=== PATIENT | female | born 1990 | race Caucasian/White ===

== ENCOUNTER 2022-09-10 15:33 | Emergency (ER) | payer BC, SELFPAY ==
[2022-09-10 15:34] VITALS: BP 124/74; PULSE 102; RESP 18; TEMP 36.1; O2SAT 100; BMI 22.1
--- NOTE | 2022-09-10 15:52 | CT_ITS ---
STUDY: CT ABDOMEN AND PELVIS WITHOUT CONTRAST REASON FOR EXAM: Female, 31 years old. LLQ pain, left flank pain, left lower back pain and swelling per patient RADIATION DOSAGE (If Supplied By Facility): CTDIvol = ( 6.76 ) mGy, DLP = ( 356.24 ) mGycm TECHNIQUE: Transaxial images were obtained from the dome of the diaphragm to the symphysis pubis without oral contrast, and without intravenous contrast. Sagittal and coronal images were reconstructed. Individualized dose optimization techniques were used for this CT. COMPARISON: None. FINDINGS: The visualized lung bases are unremarkable. The visualized portions of the heart are within normal limits. Normal liver. There are surgical clips in the gallbladder fossa consistent with a prior cholecystectomy. Normal spleen. Normal pancreas. Normal bilateral adrenal glands. Normal right kidney. Normal left kidney. Normal visualized stomach. Normal small intestine. Normal colon. The appendix is visualized and appears normal. Normal abdominal aorta. Normal inferior vena cava. Normal retroperitoneum. Normal urinary bladder. Normal abdominal wall. Normal osseous structures. CT/Abdomen/Pelvis without Cont IMPRESSION: No hydronephrosis or urinary tract calcifications. Electronically Signed: Ion Hernandez (Brooks), at 17:16 EDT Reading Location ID and State: [facility] / MD , Service support ,
--- NOTE | 2022-09-10 15:56 | EDS_ITS ---
HPI History of Present Illness Chief Complaint: Abd Pain Narrative Narrative: + Patient is a 31-year-old female who is presenting to the ER today with multiple complaints going on for the past 2 weeks. Patient is having intermittent nausea, vomiting, diarrhea for the past 2 weeks. Patient is having more swelling to her left lower quadrant, left flank and left lower back over the past 2 to 3 days as well. Patient's been having pure water with stool for the past 3 days. Patient had normal soft stool 4 to 5 days ago. Patient just had her menses several days ago, states that she is not . Patient is a G0, P0. Patient has no urinary frequency, urgency or burning. Patient has no chest pain or shortness of breath. No fever or chills. 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 No heavy lifting, twisting or turning recently. No rash. Patient's been seeing her chiropractor with no relief. Patient does have a history of kidney stone many years ago, she states it does feel like a kidney stone. Patient states that she is having swelling to her left lower back and left flank, uncertain what that is coming from. She is never had this before. 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 No radiculopathy or paresthesias down into her lower extremities, no other acute complaints PFSH [facility] Medical History ADD (attention deficit disorder) Allergies Asthma Attention deficit hyperactivity disorder (ADHD) Back problem Cholecystectomy planned Gastrointestinal problem GERD (gastroesophageal reflux disease) Migraines Pancreatitis Seizure UTI (urinary tract infection) Vision problems Home Medications albuterol sulfate 90 mcg/actuation aerosol inhaler 2 puff inhalation Q6H PRN 07/19/22 [History Last Taken Unknown] gabapentin 300 mg capsule 300 mg PO QHS 07/19/22 [History Last Taken Unknown] multivitamin 1 tab PO DAILY 07/19/22 [History Last Taken Unknown] norethindrone 1 mg-ethinyl estradiol 10 mcg (24)-iron 10 mcg(2) tablet (Lo Loestrin Fe) tablet PO 07/19/22 [History Last Taken Unknown] sumatriptan succinate 50 mg tablet tablet PO 07/19/22 [History Last Taken Unknown] dextroamphetamine-amphetamine ER 50 mg capsule,3 bead,ext release 24hr (Mydayis) 50 mg PO DAILY 30 days #30 ea 08/16/22 [Rx Last Taken Unknown] amitriptyline 25 mg tablet 25 mg PO QHS #90 tabs 09/01/22 [Rx Last Taken Unknown] dextroamphetamine-amphetamine ER 50 mg capsule,3 bead,ext release 24hr (Mydayis) 50 mg PO DAILY 30 days #30 ea 09/01/22 [Rx Last Taken Unknown] dextroamphetamine-amphetamine ER 50 mg capsule,3 bead,ext release 24hr (Mydayis) 50 mg PO DAILY 30 days #30 ea 09/01/22 [Rx Last Taken Unknown] dextroamphetamine-amphetamine ER 50 mg capsule,3 bead,ext release 24hr (Mydayis) 50 mg PO DAILY 30 days #30 ea 09/01/22 [Rx Last Taken Unknown] ondansetron 4 mg disintegrating tablet 4 mg PO Q4H PRN Nausea #6 tabs 09/10/22 [Rx Last Taken Unknown] Allergy/AdvReac Type Severity Reaction Status Date / Time amoxicillin [From Augmentin] Allergy Severe Nausea/Vom/ Verified 09/10/22 15:48 Diarrhea clavulanic acid Allergy Severe Nausea/Vom/ Verified 09/10/22 15:48 [From Augmentin] Diarrhea Latex, Natural Rubber Allergy Severe Anaphylaxis Verified 09/10/22 15:48 Sulfa (Sulfonamide Allergy Intermediate Rash Verified 09/10/22 15:48 Antibiotics) Penicillins Allergy Mild Rash Verified 09/10/22 15:48 Tetracyclines Allergy Mild Rash Verified 09/10/22 15:48 egg yolk Allergy Severe Breathing Uncoded 09/10/22 15:48 difficulty Shrimp Allergy Intermediate Rash Uncoded 09/10/22 15:48 IV contrast Dye Allergy Mild Swelling Uncoded 09/10/22 15:48 Family History Father , 2015 Alcoholism Other Anxiety Asthma Cancer Depression Hypertension Severe allergy Surgical History H/O eye surgery History of bladder surgery History of mandibular surgery Social History Smoking Status: Former smoker alcohol intake: current substance use type: does not use frequency: 3-4 times per week ROS ROS ED ROS Narrative REVIEW OF SYSTEMS: Unless otherwise stated in this report the patient's positive and negative responses for review of systems for constitutional, eyes, ENT, cardiovascular, respiratory, gastrointestinal, neurological, , musculoskeletal, and integument systems and related systems to the presenting problem are either stated in the history of present illness or were not pertinent or were negative for the symptoms and/or complaints related to the presenting medical problem. EXAM Physical Exam Narrative Exam Narrative: Vital signs reviewed and patient is not hypoxic. General: The patient appears well and in no apparent distress. Patient is resting comfortably on cart. Not toxic, lethargic, or listless. Skin: Warm, dry, no pallor noted. There is no rash noted. Multiple tattoos, no secondary signs of infection. Head: Normocephalic, atraumatic Eye: Normal conjunctiva, no drainage, EOMI. PERRL. Ears, Nose, Mouth, and Throat: oral mucosa is moist. Nares patent. Mouth without vesicles. Cardiovascular: Regular Rate and Rhythm, no murmurs, gallops, or rubs Respiratory: Patient is in no distress, no accessory muscle use, lungs are clear to auscultation, no wheezing, rales or rhonchi Back: non-tender, NO CTLS midline or paraspinal tenderness to palpation. GI: Soft, no peritoneal signs, no right upper right lower quadrant tenderness to palpation, no right flank pain, mild suprapubic tenderness palpation, moderate left upper and left lower quadrant tenderness palpation, moderate left flank pain, moderate left CVA tenderness palpation, no right CVA tenderness palpation. No rash to the abdomen. No tenderness to palpation, no masses appreciated. No rebound, guarding, or rigidity noted. Musculoskeletal: The patient has full range of motion of all extremities and joints with no difficulty. Patient has no motor, no sensory deficits. Neurological: A&O x4, normal speech, no focal neurological deficits. Psychiatric: Cooperative Const Vital Signs: 09/10/22 15:34 Temperature 97 F L Temperature Source Temporal Pulse Rate 102 H Respiratory Rate 18 Blood Pressure 124/74 H Blood Pressure Mean 90 Pulse Ox 100 Oxygen Delivery Method Room Air MDM MDM MDM Narrative Medical decision making narrative: Patient had IV lab work, fluids, Zofran, Toradol, and Bentyl. Patient states she is not , wanted medication and not wait for test. Patient will have a CT of the abdomen pelvis as well. Patient does not have an acute abdomen on initial presentation Lab Data Attestation: I reviewed the patient's lab results. Labs: Laboratory Results - last 24 hr 09/10/22 09/10/22 09/10/22 16:15 16:15 16:15 WBC 6.2 RBC 4.48 Hgb 12.6 Hct 40.1 MCV 89.5 MCH 28.1 MCHC 31.4 L RDW Std Deviation 39.0 RDW Coeff of Daniel 11.9 Plt Count 212 MPV 10.0 Immature Gran % (Auto) 0.500 Neut % (Auto) 57.2 Lymph % (Auto) 30.4 Mcdonough % (Auto) 7.9 Eos % (Auto) 3.7 Baso % (Auto) 0.3 Absolute Neuts (auto) 3.6 Absolute Lymphs (auto) 1.89 Nucleated RBC % 0 Sodium 142 Potassium 3.7 Chloride 109 H Carbon Dioxide 29.0 Anion Gap 4 L BUN 14 Creatinine 0.85 Estim Creat Clear Calc 107.18 Est GFR (MDRD) Af Amer 100 Est GFR (MDRD) Non-Af 83 BUN/Creatinine Ratio 16.5 Glucose 94 Lactic Acid 0.8 Calcium 8.9 Total Bilirubin 0.30 AST 15 ALT 21 Alkaline Phosphatase 49 Total Protein 7.2 Albumin 3.5 Globulin 3.7 Albumin/Globulin Ratio 0.9 Lipase 37 Serum , Qual 09/10/22 16:21 WBC RBC Hgb Hct MCV MCH MCHC RDW Std Deviation RDW Coeff of Daniel Plt Count MPV Immature Gran % (Auto) Neut % (Auto) Lymph % (Auto) Mcdonough % (Auto) Eos % (Auto) Baso % (Auto) Absolute Neuts (auto) Absolute Lymphs (auto) Nucleated RBC % Sodium Potassium Chloride Carbon Dioxide Anion Gap BUN Creatinine Estim Creat Clear Calc Est GFR (MDRD) Af Amer Est GFR (MDRD) Non-Af BUN/Creatinine Ratio Glucose Lactic Acid Calcium Total Bilirubin AST ALT Alkaline Phosphatase Total Protein Albumin Globulin Albumin/Globulin Ratio Lipase Serum , Qual NEGATIVE Radiography Diagnostic Testing: Clinical Impression(s) from Imaging Studies Abdomen/Pelvis CT 09/10/22 15:52 IMPRESSION: No hydronephrosis or urinary tract calcifications. Electronically Signed: Ion Hernandez (Brooks), at 17:16 EDT , Additional Tests and Interventions Additional Tests or Interventions: Patient feels better after IV fluids and medication given. Patient developed a small rash to left forearm after IV fluids and Zofran were started, but that dissipated with an ice pack. Patient had no significant allergic reaction, no anaphylactic reaction. Patient's lab work shows no acute findings. Patient's is negative as well. Patient has no acute findings on her lab test or her CT of the abdomen pelvis. A copy of the CT of the abdomen pelvis was discussed with patient at bedside. Patient will follow-up with PCP. Education on using ice and lumbar stretching exercises were discussed at bedside. Patient has been using heat to her lower back which is most likely why she is having swelling and feels swollen to her left lower back. Patient was told to start doing stretching 3 times a day, ice, follow-up with PCP as needed. No questions at discharge. Discharge Plan Triage Chief Complaint: Abd Pain Other Complaint: General Illness ED Provider: Casey Mendoza Dx/Rx/DC Orders Clinical Impression: Abdominal pain, Nausea & vomiting, Diarrhea, Lumbar back pain Instructions: Abdominal Pain, ED Back Care Tips, ED Back Exercises, Lumbar, ED Back Spasm, No Trauma, ED Diarrhea, Unknown Cause, ED Vomiting (Adult), ED RICE Prescriptions: New ondansetron [ondansetron] 4 mg tablet,disintegrating 4 mg PO Q4H PRN (Reason: Nausea) Qty: 6 0RF No Action gabapentin 300 mg capsule 300 mg PO QHS Lo Loestrin Fe 1 mg-10 mcg (24)/10 mcg (2) tablet PO sumatriptan succinate 50 mg tablet PO albuterol sulfate 90 mcg/actuation HFA aerosol inhaler 2 puff inhalation Q6H PRN multivitamin Tablet 1 tab PO DAILY amitriptyline 25 mg tablet 25 mg PO QHS Qty: 90 1RF Mydayis 50 mg capsule, ER triphasic 24 hr 50 mg PO DAILY 30 Days Qty: 30 0RF Mydayis 50 mg capsule, ER triphasic 24 hr 50 mg PO DAILY 30 Days Qty: 30 0RF Mydayis 50 mg capsule, ER triphasic 24 hr 50 mg PO DAILY 30 Days Qty: 30 0RF Mydayis 50 mg capsule, ER triphasic 24 hr 50 mg PO DAILY 30 Days Qty: 30 0RF Primary Care Provider: STELLA SWARTZ Referrals: Care Physician,No Primary [Non-Staff] - Disposition Disposition: Home, Self Care
[2022-09-10 16:24] LABS: Absolute Lymphocyte Count 1.89 X10^3/uL (0.83-4.51); Absolute Neutrophil Count 3.6 X10^3/uL (2.0-7.7); Basophil# 0.02 X10^3/uL; Basophil% 0.3 % (0-1); Eosinophil# 0.23 X10^3/uL; Eosinophils% 3.7 % (0-5); Hematocrit 40.1 % (37-47); Hemoglobin 12.6 g/dL (12.0-15.0); Lymphocyte # 1.89 X10^3/ul (0.83-4.51); Lymphocyte % 30.4 % (19-41); Mean Corp Hgb Conc 31.4 g/dL (32-36); Mean Corpuscular Hgb 28.1 pg (27.0-32.0); Mean Corpuscular Volume 89.5 fL (81-99); Monocyte# 0.49 X10^3/uL; Monocyte% 7.9 % (0-10); NRBC Flagged by Analyzer 0 % (0-5); Neutrophil # 3.55 X10^3/uL (2.7-7.7); Neutrophil % 57.2 % (47-70); Platelet Count 212 K/mm3 (150-450); RBC Distribution Width CV 11.9 % (11.6-14.6); Red Blood Count 4.48 M/mm3 (4.2-5.4); White Blood Count 6.2 K/mm3 (4.4-11.0)
[2022-09-10] MEDS: Ketorolac 15 MG/ML Vial IV (16:26)
[2022-09-10] MEDS: 0.9% Normal Saline 1,000 ML 1000 ML IV (16:26)
[2022-09-10] MEDS: Ondansetron 4 MG/2 ML Vial IV (16:26)
[2022-09-10] MEDS: Dicyclomine 20 MG/2 ML Vial IM (16:26)
[2022-09-10 16:35] LABS: Internal QC Validated? YES +Cl - CLEAR BKGD
[2022-09-10 16:37] LABS: Pregnancy, Serum, hCG Quali. NEGATIVE Negative
[2022-09-10 16:41] LABS: ALB/GLOB Ratio 0.9 RATIO (0.9-2.4); AST(SGOT) 15 U/L (15-37); Alanine Aminotransfer ALT/SGPT 21 U/L (13-56); Albumin, Serum 3.5 g/dL (3.2-5.0); Alkaline Phosphatase 49 U/L (45-117); Anion Gap 4 (5-15); BUN 14 mg/dL (7-18); BUN/Creat Ratio 16.5 RATIO (10-20); Calcium,Total 8.9 mg/dL (8.5-10.1); Chloride 109 mmol/L (98-107); Creatinine, Serum 0.85 mg/dL (0.55-1.02); EST Glomerular Filtration Rate 83 mL/min (>60); Est Glom Filt Rate - Afr Amer 100 mL/min (>60); Estimated Creatinine Clearance 107.18 ml/min; Globulin 3.7 g/dL (2.2-4.2); Glucose 94 mg/dL (74-106); Lipase 37 U/L (13-75); Potassium 3.7 mmol/L (3.5-5.1); Protein, Total 7.2 g/dL (6.4-8.2); Sodium Level 142 mmol/L (136-145)
[2022-09-10 16:48] LABS: Lactic Acid 0.8 mmol/L (0.4-1.9)
== END 2022-09-10 18:47 | disposition home or self-care (01) ==
PROVIDERS: Emergency Provider Emergency Medicine; Visit Provider Emergency Medicine
DX: R10.9 Unspecified abdominal pain (principal); R11.2 Nausea with vomiting, unspecified; R19.04 Left lower quadrant abdominal swelling, mass and lump; R19.7 Diarrhea, unspecified; M54.50 Low back pain, unspecified; J45.909 Unspecified asthma, uncomplicated; K21.9 Gastro-esophageal reflux disease without esophagitis; Z79.899 Other long term (current) drug therapy; Z87.891 Personal history of nicotine dependence; Z87.442 Personal history of urinary calculi
CPT/HCPCS: 74176; 80053; 83605; 83690; 84703; 85025; 96361; 96372; 96374; 96375; 99282; J7030; A4216; J2405

== ENCOUNTER 2022-10-20 12:51 | Emergency (ER) | payer BC, SELFPAY ==
[2022-10-20 12:52] VITALS: BP 127/88; PULSE 119; RESP 18; TEMP 36.1; O2SAT 100; BMI 23.3
[2022-10-20] MEDS: Ketorolac 15 MG/ML Vial IM (13:51)
--- NOTE | 2022-10-20 14:49 | EDS_ITS ---
HPI <CAROLINA Valentin - Last Filed: 10/20/22 16:20> History of Present Illness Chief Complaint: Back Narrative Narrative: Patient presenting today with with concerns for lower back pain that radiates down the back of her right leg into her right foot that she has had for the past several days. She is on the lower back pain for, a long time. She reports having paresthesias in her right leg and intermittent numbness in the right foot. She denies any trauma to her back and reports a history of sciatica but does not think that this feels similar to that. She also reports a history of migraines with a headache and some blurry vision that started this morning. She reports that she was able to drive here today. She feels like her right thigh is swollen in comparison to the left. She also feels like her back has been swollen for several weeks. She denies any bowel or bladder incontinence, saddle paresthesia, fevers, urinary symptoms, and history of IV drug use. [facility] <CAROLINA Valentin - Last Filed: 10/20/22 16:20> [facility] Medical History ADD (attention deficit disorder) Allergies Asthma Attention deficit hyperactivity disorder (ADHD) Back problem Cholecystectomy planned Gastrointestinal problem GERD (gastroesophageal reflux disease) Migraines Pancreatitis Seizure UTI (urinary tract infection) Vision problems Home Medications albuterol sulfate 90 mcg/actuation aerosol inhaler 2 puff inhalation Q6H PRN 07/19/22 [History Last Taken Unknown] gabapentin 300 mg capsule 300 mg PO QHS 07/19/22 [History Last Taken Unknown] multivitamin 1 tab PO DAILY 07/19/22 [History Last Taken Unknown] norethindrone 1 mg-ethinyl estradiol 10 mcg (24)-iron 10 mcg(2) tablet (Lo Loestrin Fe) tablet PO 07/19/22 [History Last Taken Unknown] sumatriptan succinate 50 mg tablet tablet PO 07/19/22 [History Last Taken Unknown] amitriptyline 25 mg tablet 25 mg PO QHS #90 tabs 09/01/22 [Rx Last Taken Unknown] dextroamphetamine-amphetamine ER 50 mg capsule,3 bead,ext release 24hr (Mydayis) 50 mg PO DAILY 30 days #30 ea 09/01/22 [Rx Last Taken Unknown] dextroamphetamine-amphetamine ER 50 mg capsule,3 bead,ext release 24hr (Mydayis) 50 mg PO DAILY 30 days #30 ea 09/01/22 [Rx Last Taken Unknown] ondansetron 4 mg disintegrating tablet 4 mg PO Q4H PRN Nausea #6 tabs 09/10/22 [Rx Last Taken Unknown] naproxen 500 mg tablet,delayed release 500 mg PO BID #10 tabs 10/20/22 [Rx Last Taken Unknown] Allergy/AdvReac Type Severity Reaction Status Date / Time amoxicillin [From Augmentin] Allergy Severe Nausea/Vom/ Verified 10/20/22 12:55 Diarrhea clavulanic acid Allergy Severe Nausea/Vom/ Verified 10/20/22 12:55 [From Augmentin] Diarrhea Latex, Natural Rubber Allergy Severe Anaphylaxis Verified 10/20/22 12:55 Sulfa (Sulfonamide Allergy Intermediate Rash Verified 10/20/22 12:55 Antibiotics) Penicillins Allergy Mild Rash Verified 10/20/22 12:55 Tetracyclines Allergy Mild Rash Verified 10/20/22 12:55 egg yolk Allergy Severe Breathing Uncoded 09/10/22 15:48 difficulty Shrimp Allergy Intermediate Rash Uncoded 09/10/22 15:48 IV contrast Dye Allergy Mild Swelling Uncoded 09/10/22 15:48 Family History Father , 2015 Alcoholism Other Anxiety Asthma Cancer Depression Hypertension Severe allergy Surgical History H/O eye surgery History of bladder surgery History of mandibular surgery Social History Smoking Status: Former smoker alcohol intake: current substance use type: does not use frequency: 3-4 times per week ROS <CAROLINA Valentin - Last Filed: 10/20/22 16:20> ROS ED Constitutional Constitutional ED: Denies chills or fever(s) Eyes Eyes: Reports blurry vision Cardiovascular Cardiovascular: Denies chest pain or palpitations Respiratory/Chest Respiratory/Chest: Denies cough or dyspnea Gastrointestinal Gastrointestinal: Denies abdominal pain, nausea or vomiting Genitourinary Genitourinary ED: Denies dysuria, hematuria or urinary urgency Musculoskeletal Musculoskeletal: Reports back pain; Denies arthralgias or myalgias Integumentary Denies abscess, Abrasions or rash Neurologic Neurologic: Reports paresthesias; Denies weakness EXAM <CAROLINA Valentin - Last Filed: 10/20/22 16:20> Physical Exam Const Vital Signs: 10/20/22 12:52 Temperature 97 F L Temperature Source Temporal Pulse Rate 119 H Respiratory Rate 18 Blood Pressure 127/88 H Blood Pressure Mean 101 Pulse Ox 100 Oxygen Delivery Method Room Air Positive well nourished, well developed and no apparent distress General Appearance ED: well developed HEENT Reports normocephalic and head/scalp atraumatic Mouth ED: Yes moist mucous membranes normal Eyes PERRL and EOMs intact bilaterally Neck full ROM and supple Chest Wall inspection of chest normal Resp normal respiratory effort and clear to auscultation bilaterally Cardio regular rate and regular rhythm GI soft to palpation, non-tender, non-distended and no masses Back/Spine normal ROM and normal to inspection Extremity normal to inspection and full ROM Neuro oriented x3, CN's II-XII intact bilaterally, moves all extremities, no focal motor deficits and no sensory deficits noted Sensorium / Orientation: awake and alert Motor Exam: strength 5/5 throughout Psych mental status grossly normal and thought process normal Skin no rashes or lesions noted and no wounds <Dr. Matias Salmon MD - Last Filed: 10/20/22 21:53> Physical Exam Const Vital Signs: 10/20/22 12:52 Temperature 97 F L Temperature Source Temporal Pulse Rate 119 H Respiratory Rate 18 Blood Pressure 127/88 H Blood Pressure Mean 101 Pulse Ox 100 Oxygen Delivery Method Room Air MDM <CAROLINA Valentin - Last Filed: 10/20/22 16:20> [facility] Narrative Medical decision making narrative: Patient presenting today with multiple vague complaints. She reports blurry vision, she was able to drive here today and this does sound consistent with an ocular migraine as patient has a history of migraines and is also complaining of a headache. She reports pain to the posterior aspect of her right leg that travels from her lower back all the way down her right leg into her right foot. However, she did tell the attending ED physician different symptoms which did not sound consistent with sciatica. Neuro exam is WNL. She is complaining of swelling to her right thigh, however I am not seeing any swelling on examination or examination findings that would be consistent with a DVT. She has never had a blood clot, no recent surgeries or procedures, no recent travel or immobilization. Patient was given Toradol here. She asked if she could have a MRI of her back and I told her that those are not routinely obtained in the ED unless it is an emergency. She does not have any symptoms that would be concerning for cauda equina syndrome or spinal abscess. Patient became upset and began cussing at the nurse telling her that we are not doing anything to help her. She does not have a PCP in this area, I have given a referral for one for her to follow-up with. Her symptoms are very nonspecific here. She will be discharged home in stable condition. <Dr. Matias Salmon MD - Last Filed: 10/20/22 21:53> [facility] MDM Narrative Medical decision making narrative: Patient presenting today with multiple vague complaints. She reports blurry vision, she was able to drive here today and this does sound consistent with an ocular migraine as patient has a history of migraines and is also complaining of a headache. She reports pain to the posterior aspect of her right leg that travels from her lower back all the way down her right leg into her right foot. However, she did tell the attending ED physician different symptoms which did not sound consistent with sciatica. Neuro exam is WNL. She is complaining of swelling to her right thigh, however I am not seeing any swelling on examination or examination findings that would be consistent with a DVT. She has never had a blood clot, no recent surgeries or procedures, no recent travel or immobilization. Patient was given Toradol here. She asked if she could have a MRI of her back and I told her that those are not routinely obtained in the ED unless it is an emergency. She does not have any symptoms that would be concerning for cauda equina syndrome or spinal abscess. Patient became upset and began cussing at the nurse telling her that we are not doing anything to help her. She does not have a PCP in this area, I have given a referral for one for her to follow-up with. Her symptoms are very nonspecific here. She will be discharged home in stable condition. I have personally performed a face to face assessment of the patient and have reviewed the TENA Note. I performed a substantive portion of the visit including all aspects of the following. My adams findings include: History is remarked for back pain. She complains of pain posterior right leg from mid thigh to mid calf. It is not in a radicular distribution. She denies bowel bladder dysfunction. She does report stress incontinence. She denies saddle paresthesia or anesthesia. She denies foot drop. She denies knee buckling going up or down steps. She denies recent dental procedure or surgical procedure. She denies fever or chills. There is no history of SBE or IV drug use. Exam is remarkable depressed affect. Straight leg test is negative right and left. Crossover test is negative. Patella and ankle reflex are 3+ and symmetric. EHL is difficult to assess because of lack of effort. Patient's gait was observed. There is no foot drop. Is able to walk on heels and toes. When she began walking on her heels she states she had difficulty because her right foot became numb. She is able to perform a 1 legged squat right and left. DP and PT pulse are palpable. Abdomen is soft nontender. No palpable pulsatile mass or abdominal bruit. Examination the back is unremarkable. Having patient stand on her right leg caused her pain on the right side. Having patient's stand on her left leg cause pain on the left side. Movement exacerbates her pain. Medical Decision Making patient's exam is consistent with muscular pain. There is no concern for cauda equina, herniated disc etc. Patient was treated with NSAIDs and she drove herself. Other additions or changes: Nurse informed me that patient began to curse at her. She was asked to document this and her portion of the chart since she was exposed to this language. Discharge Plan Triage Chief Complaint: Back ED Midlevel Provider: Evelia Licona ED Provider: Matias Salmon Dx/Rx/DC Orders Clinical Impression: Back pain, Attention deficit hyperactivity disorder (ADHD), Depression Instructions: ED Back Care Tips Prescriptions: New naproxen 500 mg tablet,delayed release (DR/EC) 500 mg PO BID Qty: 10 0RF No Action gabapentin 300 mg capsule 300 mg PO QHS Lo Loestrin Fe 1 mg-10 mcg (24)/10 mcg (2) tablet PO sumatriptan succinate 50 mg tablet PO albuterol sulfate 90 mcg/actuation HFA aerosol inhaler 2 puff inhalation Q6H PRN multivitamin Tablet 1 tab PO DAILY amitriptyline 25 mg tablet 25 mg PO QHS Qty: 90 1RF Mydayis 50 mg capsule, ER triphasic 24 hr 50 mg PO DAILY 30 Days Qty: 30 0RF Mydayis 50 mg capsule, ER triphasic 24 hr 50 mg PO DAILY 30 Days Qty: 30 0RF ondansetron [ondansetron] 4 mg tablet,disintegrating 4 mg PO Q4H PRN (Reason: Nausea) Qty: 6 0RF Primary Care Provider: Care Physician,No Primary Referrals: Ihsan Burnett DO [Med Staff - [employer]] - 3-5 Days Care Physician,No Primary [Primary Care Provider] - Activity Restrictions/Additional Instructions: I have given you a PCP to follow-up with. Disposition Disposition: Home, Self Care Discharge Date/Time: 10/20/22 14:19
== END 2022-10-20 14:19 | disposition home or self-care (01) ==
PROVIDERS: Emergency Provider Emergency Medicine; Visit Provider Emergency Medicine
DX: M54.50 Low back pain, unspecified (principal); M79.604 Pain in right leg; M79.89 Other specified soft tissue disorders; F32.A Depression, unspecified; N39.3 Stress incontinence (female) (male); H53.8 Other visual disturbances; F90.9 Attention-deficit hyperactivity disorder, unspecified type; Z79.899 Other long term (current) drug therapy; Z87.891 Personal history of nicotine dependence
CPT/HCPCS: 96374; 99282

== ENCOUNTER 2023-09-22 10:37 | Emergency (ER) | payer OTHER, SELFPAY ==
[2023-09-22 10:38] VITALS: BP 116/71; PULSE 102; RESP 18; TEMP 36.6; O2SAT 100; BMI 22.0
--- NOTE | 2023-09-22 10:38 | MRI_ITS ---
HISTORY: low back pain, concern for cauda equina syndrome. TECHNIQUE: Multiplanar and multisequence MR images of the lumbar spine were obtained without intravenous contrast. 146 images. COMPARISON: CT 09/10/2022. FINDINGS: VERTEBRAE: Vertebral body heights maintained. Small hemangioma in the L5 vertebral body. Mild degenerative endplate changes of L5-S1. No other significant bone marrow signal abnormality. ALIGNMENT: No anterior or posterior subluxation. Very mild scoliosis. SPINAL CANAL: Normal morphology and position of the conus medullaris at L1. No epidural collection. INTERVERTEBRAL DISCS: T12-L1: Mild disc bulge without significant central canal stenosis or foraminal narrowing based on the sagittal images. L1-2, L2-3, L3-4: Minimal disc bulges without significant central canal stenosis or foraminal narrowing. L4-5: Minimal disc bulge with mild facet arthropathy resulting in mild bilateral foraminal narrowing. No significant central canal stenosis. L5-S1: Mild disc bulge with annular fissure and facet arthropathy resulting in moderate right and mild left foraminal narrowing. No significant central canal stenosis. SOFT TISSUES: No paraspinal fluid collection. MRI/Spine Lumbar (Routine) IMPRESSION: Mild degenerative change of the lumbar spine without significant spinal canal stenosis. Mild left foraminal narrowing of L4-5. Moderate right and mild left foraminal narrowing of L5-S1. Electronically Signed: Karine Canseco MD at 12:47 EDT ,
[2023-09-22 11:16] LABS: Bacteria 0 SEEN /hpf (None Seen)
--- NOTE | 2023-09-22 11:17 | EX.ED.DYSGE1 ---
HPI History of Present Illness Chief Complaint: Numb/Ting Informant: patient Narrative Narrative: Patient is a 32-year-old female with history of ADHD and chronic back pain presenting with worsening back pain, leg numbness/groin and buttocks numbness as well as urinary symptoms. She initially saw her spine surgeon today, Dr. Celis, who was concerned about possible cauda equina syndrome and recommend she come to the emergency room for MRI to rule this out. Patient notes that for the past year she has been dealing with a lot of these back issues and has done physical therapy, has had spinal injections with Dr. Austin as recently as 2 weeks ago with no improvement. Patient states the pain has since been worsening with increased pain in her right leg in the past few days she has developed numbness on the back of both of her thighs, her groin and her buttocks. She also notes she has had a harder time urinating and is only dribbling. She does have a history of interstitial cystitis but states this feels a lot different. She has been having significant shocks of pain down her legs. 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 No fever or chills reported. No other complaints or concerns reported at this time. [facility] Medical History Attention deficit hyperactivity disorder (ADHD) Cholecystectomy planned ADD (attention deficit disorder) Vision problems Seizure GERD (gastroesophageal reflux disease) Pancreatitis Migraines Gastrointestinal problem UTI (urinary tract infection) Back problem Asthma Allergies Home Medications ?Medication ?Instructions ?Recorded ?Last Taken ?Type albuterol sulfate 90 mcg/actuation 2 puff inhalation Q6H PRN asthma 07/19/22 Unknown History aerosol inhaler gabapentin 300 mg capsule 300 mg PO QHS 07/19/22 Unknown History multivitamin 1 tab PO DAILY 07/19/22 Unknown History norethindrone 1 mg-ethinyl tablet PO 07/19/22 Unknown History estradiol 10 mcg (24)-iron 10 mcg(2) tablet (Lo Loestrin Fe) amitriptyline 25 mg tablet 25 mg PO QHS #90 tabs 06/21/23 Unknown Rx dextroamphetamine-amphetamine ER 20 mg PO DAILY 30 days #30 caps 09/20/23 Unknown Rx 20 mg 24hr capsule,extend release (Adderall XR) dextroamphetamine-amphetamine ER 30 mg PO DAILY 30 days #30 caps 09/20/23 Unknown Rx 30 mg 24hr capsule,extend release (Adderall XR) meloxicam 7.5 mg tablet 7.5 mg PO 09/22/23 Unknown History methylprednisolone 4 mg tablets in See Rx Instructions PO .COMPLEX 09/22/23 Unknown Rx a dose pack (Medrol (Baldo)) #21 tabs ondansetron 4 mg disintegrating 4 mg PO Q8H PRN PRN Nausea #10 tabs 09/22/23 Unknown Rx tablet tizanidine 2 mg capsule (Zanaflex) 2 mg PO TID PRN back spasms 09/22/23 Unknown History Allergy/AdvReac Type Severity Reaction Status Date / Time amoxicillin (From Augmentin) Allergy Severe Nausea/Vom/ Verified 09/22/23 10:38 Diarrhea clavulanic acid (From Allergy Severe Nausea/Vom/ Verified 09/22/23 10:38 Augmentin) Diarrhea Latex, Natural Rubber Allergy Severe Anaphylaxis Verified 09/22/23 10:38 egg yolk Allergy Intermediate Shortness Verified 09/22/23 10:38 of breath Iodinated Contrast Media Allergy Intermediate Swelling Verified 09/22/23 10:38 shrimp Allergy Intermediate Rash Verified 09/22/23 10:38 Sulfa (Sulfonamide Allergy Intermediate Rash Verified 09/22/23 10:38 Antibiotics) Penicillins Allergy Mild Rash Verified 09/22/23 10:38 Tetracyclines Allergy Mild Rash Verified 09/22/23 10:38 Family History Father , 2015 Alcoholism Other Anxiety Asthma Cancer Depression Hypertension Severe allergy Surgical History History of mandibular surgery H/O eye surgery History of bladder surgery Social History Smoking Status: Former smoker alcohol intake: current substance use type: does not use frequency: 3-4 times per week ROS ROS ED Constitutional Constitutional ED: Reports sweats; Denies chills or fever(s) Cardiovascular Cardiovascular: Denies chest pain Respiratory/Chest Respiratory/Chest: Denies cough Gastrointestinal Gastrointestinal: Denies abdominal pain Genitourinary Genitourinary ED: Reports urinary frequency and other Details: Dribbling Musculoskeletal Musculoskeletal: Reports back pain; Denies arthralgias Integumentary Denies rash Neurologic Neurologic: Reports paresthesias RLE and LLE and weakness Hematologic/Lymphatic Hematologic/Lymphatic: Denies easy bleeding or easy bruising EXAM Physical Exam Const Vital Signs: 09/22/23 10:38 09/22/23 13:13 09/22/23 14:16 Temperature 97.9 F Temperature Source Temporal Pulse Rate 102 H 80 78 Respiratory Rate 18 17 16 Blood Pressure 116/71 106/55 L 99/53 L Blood Pressure Mean 86 72 68 Pulse Ox 100 100 100 Oxygen Delivery Method Room Air Room Air Room Air 09/22/23 14:59 Temperature 98.2 F Temperature Source Pulse Rate 78 Respiratory Rate 16 Blood Pressure 99/53 L Blood Pressure Mean 68 Pulse Ox 100 Oxygen Delivery Method Positive well nourished and well developed General Appearance ED: well developed and NAD HEENT Reports moist mucous membranes Neck supple Chest Wall inspection of chest normal and palpation of chest normal Resp normal respiratory effort and clear to auscultation bilaterally Cardio regular rate and regular rhythm Cardio Narrative: 2+ DP pulses bilateral GI normal to inspection, nondistended, normoactive bowel sounds and non-tender Back/Spine Back/Spine Narrative: Mild diffuse midline lumbar tenderness. Right paraspinal lumbar tenderness. Increased pain with straight leg test bilaterally that goes down the ipsilateral leg but only at 15 to 30 degrees. Cervical Spine: Negative for cervical spine tenderness Thoracic Spine / Upper Back: Negative for thoracic spinal tenderness Lumbar Spine / Lower Back: lumbar spinal tenderness Extremity normal to inspection General Extremety ED: Negative for edema or tenderness General Extremity: Negative for edema Neuro Neuro Narrative: Subjective paresthesias of the bilateral legs more pronounced on the medial aspect than the lateral aspect. There is an asymmetry of the paresthesias of the feet where it is more pronounced diffusely on the right foot compared to the left. Sensorium / Orientation: alert Motor Exam: strength 5/5 throughout Psych mental status grossly normal Skin no rashes or lesions noted and no wounds MDM MDM MDM Narrative Medical decision making narrative: Patient is sent from spine surgeon office for concern of cauda equina syndrome. Patient had an injection [address] Austin. She is been having worsening pain and numbness of her legs is now eliciting saddle anesthesia and urinary changes. She feels that she is not completely emptying her bladder. Patient is able to urinate in the ER and provide a sample. No signs of infection. She does report a history of interstitial cystitis. Bladder scan obtained and does not show any signs of urinary retention/no residual urine. Emergent MRI obtained as patient does have paresthesias in the saddle distribution however she has paresthesias of the right lateral leg throughout as well that is more pronounced in the saddle region. Patient is ambulatory in the emergency room. She has good strength in her legs. MRI does not show signs of acute cauda equina syndrome. Case is discussed with Dr. Celis again and we reviewed the MRI results. He feels that she can be discharged home. Will start her on a Medrol Dosepak. He does not want to give her a prescription for opioid pain medicine at this time. Patient is given initially morphine and then Toradol and oxycodone for her symptoms. Her BMP does show a low bicarb of 19 possibly consistent with some mild dehydration. She was ordered IV fluids but her IV was good and slow. Patient states she would like to just go home and drink fluids. Given that she is having ketones in her urine and her kidney function is normal I feel this is appropriate. Patient is given a work note for today and through the weekend. She is instructed with spine. She verbalized agreement understand this plan. Discharged home in stable condition. Lab Data Labs: Laboratory Results - last 24 hr 09/22/23 09/22/23 11:07 12:43 WBC 6.7 RBC 4.59 Hgb 13.0 Hct 42.2 MCV 91.9 MCH 28.3 MCHC 30.8 L RDW Std Deviation 41.3 RDW Coeff of Daniel 12.4 Plt Count 205 MPV 10.2 Immature Gran % (Auto) 0.400 Neut % (Auto) 62.3 Lymph % (Auto) 30.4 [place] % (Auto) 5.2 Eos % (Auto) 1.3 Baso % (Auto) 0.4 Absolute Neuts (auto) 4.2 Absolute Lymphs (auto) 2.03 Nucleated RBC % 0 Sodium 135 L Potassium 3.9 Chloride 109 H Carbon Dioxide 19.0 L Anion Gap 7 BUN 15 Creatinine 0.81 Estim Creat Clear Calc 111.44 Est GFR (MDRD) Af Amer 105 Est GFR (MDRD) Non-Af 87 BUN/Creatinine Ratio 18.5 Glucose 92 Calcium 9.2 Urine Color Yellow Urine Clarity Sl. Cloudy Urine pH 6.5 Ur Specific [place] 1.010 Urine Protein 15 H Urine Glucose (UA) Normal Urine Ketones Negative Urine Occult Blood 50 H Urine Nitrite Negative Urine Bilirubin Negative Urine Urobilinogen Normal Ur Leukocyte Esterase 25 H Urine RBC 0-5 SEEN Urine WBC 0-5 SEEN Ur Squamous Epith Cells 0-5 SEEN Urine Bacteria 0 SEEN Urine Mucus 1+ Urine Test Negative Radiography Diagnostic Testing: Clinical Impression(s) from Imaging Studies Lumbar Spine MRI 09/22/23 10:38 IMPRESSION: Mild degenerative change of the lumbar spine without significant spinal canal stenosis. Mild left foraminal narrowing of L4-5. Moderate right and mild left foraminal narrowing of L5-S1. Electronically Signed: Karine Canseco MD at 12:47 EDT Reading Location ID and State: [facility] / [place] Tel , Service support , Discharge Plan Triage Chief Complaint: Numb/Ting ED Provider: Carmencita Garcia Dx/Rx/DC Orders Clinical Impression: Back pain, Radicular pain of both lower extremities, Bilateral leg paresthesia Prescriptions: New methylprednisolone [Medrol (Baldo)] 4 mg tablets,dose pack See Rx Instructions .ROUTE .COMPLEX Qty: 21 0RF Rx Instructions: for 6 days ondansetron 4 mg tablet,disintegrating 4 mg PO Q8H PRN PRN (Reason: Nausea) Qty: 10 0RF No Action gabapentin 300 mg capsule 300 mg PO QHS Lo Loestrin Fe 1 mg-10 mcg (24)/10 mcg (2) tablet PO albuterol sulfate 90 mcg/actuation HFA aerosol inhaler 2 puff inhalation Q6H PRN (Reason: asthma ) multivitamin Tablet 1 tab PO DAILY amitriptyline 25 mg tablet 25 mg PO QHS Qty: 90 1RF tizanidine [Zanaflex] 2 mg capsule 2 mg PO TID PRN (Reason: back spasms) meloxicam 7.5 mg tablet 7.5 mg PO dextroamphetamine-amphetamine [Adderall XR] 20 mg capsule,extended release 24hr 20 mg PO DAILY 30 Days Qty: 30 0RF dextroamphetamine-amphetamine [Adderall XR] 30 mg capsule,extended release 24hr 30 mg PO DAILY 30 Days Qty: 30 0RF Stand Alone Forms: ED Work / School Excuse Primary Care Provider: Care Physician,No Primary Referrals: Casey Celis DO [Med Staff - Active Staff] - 3-5 Days if not improving Care Physician,No Primary [Primary Care Provider] - Print Language: Citizen Of [place] Disposition Disposition: Home, Self Care Discharge Date/Time: 09/22/23 15:18
[2023-09-22 11:20] LABS: Color, Urine Yellow (Yellow); Glucose, Dipstick Normal (Normal); Ketone-Dipstick Negative (Negative); Leukocyte Esterase-Dipstick 25 /ul (Negative); Nitrite-Dipstick Negative (Negative); Occult Blood-Urine 50 /ul (Negative); Protein-Dipstick 15 mg/dl (Negative); Urine Bilirubin Dipstick Negative (Negative); Urine Clarity Sl. Cloudy (Clear); Urine Urobilinogen Normal (Normal); Urine pH 6.5 (5.0 - 8.0)
[2023-09-22 11:27] LABS: Mucous, Urine 1+ /hpf (<or=2+); Squamous Epithelial Cells - UA 0-5 SEEN /hpf (5-10); White Blood Cells 0-5 SEEN /hpf (0-5)
[2023-09-22 11:28] LABS: Internal QC Validated? YES +Cl - CLEAR BKGD; Pregnancy, Urine Negative Negative; Record Kit Lot#,Urine Preg HCG0000772476; Red Blood Cells-Urine 0-5 SEEN /hpf (0-5)
[2023-09-22] MEDS: Morphine 4 MG/ML Syringe IV (12:49)
[2023-09-22] MEDS: Ondansetron 4 MG/2 ML Vial IM (12:50)
[2023-09-22 12:54] LABS: Absolute Lymphocyte Count 2.03 X10^3/uL (0.83-4.51); Absolute Neutrophil Count 4.2 X10^3/uL (2.0-7.7); Basophil# 0.03 X10^3/uL; Basophil% 0.4 % (0-1); Eosinophil# 0.09 X10^3/uL; Eosinophils% 1.3 % (0-5); Hematocrit 42.2 % (37-47); Lymphocyte # 2.03 X10^3/ul (0.83-4.51); Lymphocyte % 30.4 % (19-41); Mean Corp Hgb Conc 30.8 g/dL (32-36); Mean Corpuscular Hgb 28.3 pg (27.0-32.0); Mean Corpuscular Volume 91.9 fL (81-99); Mean Platelet Vol. 10.2 fl (6.2-12.0); Monocyte# 0.35 X10^3/uL; Monocyte% 5.2 % (0-10); NRBC Flagged by Analyzer 0 % (0-5); Neutrophil # 4.15 X10^3/uL (2.7-7.7); Neutrophil % 62.3 % (47-70); Platelet Count 205 K/mm3 (150-450); RBC Distribution Width CV 12.4 % (11.6-14.6); RBC Distribution Width SD 41.3 fl (35.1-43.9); Red Blood Count 4.59 M/mm3 (4.2-5.4); White Blood Count 6.7 K/mm3 (4.4-11.0)
[2023-09-22 13:07] LABS: Anion Gap 7 (5-15); BUN 15 mg/dL (7-18); BUN/Creat Ratio 18.5 RATIO (10-20); Calcium,Total 9.2 mg/dL (8.5-10.1); Chloride 109 mmol/L (98-107); Creatinine, Serum 0.81 mg/dL (0.55-1.02); EST Glomerular Filtration Rate 87 mL/min (>60); Est Glom Filt Rate - Afr Amer 105 mL/min (>60); Estimated Creatinine Clearance 111.44 ml/min; Glucose 92 mg/dL (74-106); Potassium 3.9 mmol/L (3.5-5.1); Sodium Level 135 mmol/L (136-145)
[2023-09-22 13:13] VITALS: BP 106/55; PULSE 80; RESP 17; O2SAT 100
[2023-09-22] MEDS: 0.9% Normal Saline (1000mL) 1,000 ML 999 ML IV (13:40)
[2023-09-22 14:16] VITALS: BP 99/53; PULSE 78; RESP 16; O2SAT 100
[2023-09-22] MEDS: Ketorolac 15 MG/ML Vial IV (14:30)
[2023-09-22] MEDS: oxyCODONE 5 MG Tablet PO (14:31)
[2023-09-22 14:59] VITALS: BP 99/53; PULSE 78; RESP 16; TEMP 36.8; O2SAT 100
== END 2023-09-22 15:18 | disposition home or self-care (01) ==
PROVIDERS: Emergency Provider Emergency Medicine; Visit Provider Emergency Medicine
DX: M54.10 Radiculopathy, site unspecified (principal); M79.605 Pain in left leg; M79.604 Pain in right leg; G89.29 Other chronic pain; R35.0 Frequency of micturition; Z79.899 Other long term (current) drug therapy; Z87.891 Personal history of nicotine dependence
CPT/HCPCS: 72148; 80048; 81001; 81025; 85025; 96361; 96372; 96374; 96375; 99283; J7030; J2405

== ENCOUNTER → 2023-10-04 | Outpatient (CLI) | payer OTHER, SELFPAY ==
--- NOTE | 2023-10-04 08:37 | EKG12_ITS ---
Test Reason : PREOP Blood Pressure : / mmHG Vent. Rate : 090 BPM Atrial Rate : 090 BPM P-R Int : 134 ms QRS Dur : 082 ms QT Int : 354 ms P-R-T Axes : 077 075 037 degrees QTc Int : 433 ms Normal sinus rhythm Normal ECG Confirmed by Enrico Snell ([id number]), videotape editor CHANG FELIX ([id number]) on 10/05/2023 10:21:53 AM Referred By: Casey Celis Confirmed By:Enrico Snell
--- NOTE | 2023-10-04 08:50 | RAD_ITS ---
STUDY: X-RAY CHEST REASON FOR EXAM: Female, 32 years old. PRE OP TECHNIQUE: PA and lateral views of the chest. COMPARISON: None. FINDINGS: The lungs are clear and expanded. There is no demonstrated pleural abnormality. Normal size heart. Normal mediastinum and hina. Normal visualized pulmonary arteries. Normal visualized aortic arch and descending thoracic aorta. Normal visualized thoracic spine. Normal visualized ribs, clavicles, and shoulders. There is no demonstrated abnormality of the visualized soft tissue structures of the upper abdomen. RAD/Chest PA and Lateral IMPRESSION: Normal x-ray examination of the chest. Electronically Signed: Jayme Grimes MD at 12:25 EDT ,
[2023-10-04 09:29] LABS: Absolute Lymphocyte Count 2.22 X10^3/uL (0.83-4.51); Absolute Neutrophil Count 5.2 X10^3/uL (2.0-7.7); Basophil# 0.03 X10^3/uL; Basophil% 0.4 % (0-1); Eosinophil# 0.35 X10^3/uL; Eosinophils% 4.1 % (0-5); Hematocrit 37.5 % (37-47); Hemoglobin 12.1 g/dL (12.0-15.0); Lymphocyte # 2.22 X10^3/ul (0.83-4.51); Lymphocyte % 26.1 % (19-41); Mean Corp Hgb Conc 32.3 g/dL (32-36); Mean Corpuscular Hgb 28.3 pg (27.0-32.0); Mean Corpuscular Volume 87.8 fL (81-99); Mean Platelet Vol. 9.9 fl (6.2-12.0); Monocyte# 0.64 X10^3/uL; Monocyte% 7.5 % (0-10); NRBC Flagged by Analyzer 0 % (0-5); Neutrophil # 5.23 X10^3/uL (2.7-7.7); Neutrophil % 61.3 % (47-70); Platelet Count 216 K/mm3 (150-450); RBC Distribution Width CV 13.1 % (11.6-14.6); RBC Distribution Width SD 41.5 fl (35.1-43.9); Red Blood Count 4.27 M/mm3 (4.2-5.4); White Blood Count 8.5 K/mm3 (4.4-11.0)
[2023-10-04 09:46] LABS: Prothrombin Time (Protime)PT. 12.7 SECONDS (11.7-14.9)
[2023-10-04 09:47] LABS: Partial Thromboplast Time 22.3 Seconds (24.1-36.2)
[2023-10-04 10:02] LABS: Anion Gap 4 (5-15); BUN 19 mg/dL (7-18); BUN/Creat Ratio 21.6 RATIO (10-20); Calcium,Total 8.9 mg/dL (8.5-10.1); Chloride 106 mmol/L (98-107); Creatinine, Serum 0.88 mg/dL (0.55-1.02); EST Glomerular Filtration Rate 79 mL/min (>60); Est Glom Filt Rate - Afr Amer 95 mL/min (>60); Glucose 108 mg/dL (74-106); Potassium 4.2 mmol/L (3.5-5.1); Sodium Level 136 mmol/L (136-145)
== END | disposition home or self-care (01) ==
PROVIDERS: Referring Provider Orthopaedic Surgery; Visit Provider Orthopaedic Surgery
DX: Z01.812 Encounter for preprocedural laboratory examination (principal); G40.909 Epilepsy, unspecified, not intractable, without status epilepticus; Z01.810 Encounter for preprocedural cardiovascular examination; Z01.811 Encounter for preprocedural respiratory examination; M48.061 Spinal stenosis, lumbar region without neurogenic claudication; M54.16 Radiculopathy, lumbar region; M43.16 Spondylolisthesis, lumbar region; M51.27 Other intervertebral disc displacement, lumbosacral region; M51.36 Other intervertebral disc degeneration, lumbar region; M54.17 Radiculopathy, lumbosacral region; M41.86 Other forms of scoliosis, lumbar region; D18.00 Hemangioma unspecified site; J45.909 Unspecified asthma, uncomplicated
CPT/HCPCS: 36415; 71046; 80048; 85025; 85610; 85730; 93005